=== PATIENT | female | born 1990 | race Caucasian/White ===

== ENCOUNTER 2016-11-02 14:29 | Emergency (ER) | payer OTHER ==
[2016-11-02 15:33] LABS: RED BLOOD COUNT 5.15 M/UL (4.00-5.10); WHITE BLOOD COUNT 8.3 K/UL (4.5-11.0)
[2016-11-02 15:52] LABS: BUN/CREATININE RATIO 17 (0-10)
== END 2016-11-02 19:45 | disposition home or self-care (01) ==
LOC: ER1 14:29
PROVIDERS: Emergency Medicine
DX: N83.202 Unspecified ovarian cyst, left side (principal); Z90.49 Acquired absence of other specified parts of digestive tract
CPT/HCPCS: 36415; 80053; 81001; 82272; 83605; 83690; 84703; 85025; 96361; 96374; 96375; 96376; 99284; J2270; J2405; J7030; J7050; Q9962

== ENCOUNTER → 2020-11-03 | Outpatient (CLI) | payer OTHER ==
[~2020-11-03] MED LIST: 24HR ALLERGY REL5 MG PO; BENADRYL 25MG C25 MG PO; COLACE100 MG PO; CYCLOBENZAPRINE10 MG PO; DICLOFENAC SODI50 MG PO; DICYCLOMINE HCL10 MG PO; EPINEPHRIN0.3 MG/0.3 INJ; FERROUS SULFAT325 MG PO; FLAGYL500 MG PO; HYDROCODON-ACE1 EAC4 PO; IBU800 MG PO; IBUPROFEN600 MG PO; IBUPROFEN800 MG PO; KEFLEX CAP 500500 MG PO; KEFLEX500 MG PO; KETOROLAC TROME10 MG PO; LAMISIL AT 15 G15 GM TOP; LEVOFLOXACIN250 MG PO; LEVSIN-SL0.125 MG PO; LIPITOR TAB 1010 MG PO; NAPROSYN500 MG PO; NAPROXEN 250 M250 MG PO; NEURONTIN300 MG PO; NITROGLYCERIN0.4 MG SL; NITROSTAT0.4 MG SL; NORCO 5-325 TA1 EACH PO; NORCO 7.5-3251 EACH PO; OXYCODONE HCL10 MG PO; PHENERGAN 12.12.5 M1 PO; PHENERGAN 25 MG25 M1 PO; POTASSIUM GLUCO99 MG PO; POTASSIUM PO; PREDNISONE 50 M50 MG PO; PROPRANOLOL HCL60 MG PO; PROTONIX 40 MG40 M1 PO; PROTONIX40 MG PO; SPRINTEC 28 DA1 EACH PO; TYLENOL 325MG325 MG PO; TYLENOL 500 MG500 MG PO; VENTOLIN HFA 66.7 GM INH; VITAMIN C 500500 MG PO; VITAMIN D PO; VITAMIN D250000 UNIT PO; VOLTAREN GEL TD; ZITHROMAX250 MG PO; ZOFRAN4 MG PO
[2020-11-03 09:45] LABS: HEMOGLOBIN 14.8 gm/dl (12.3-15.3); WHITE BLOOD COUNT 7.1 K/UL (4.5-11.0)
[2020-11-03 10:14] LABS: BUN/CREATININE RATIO 14 (0-10)
== END ==
LOC: LAB 09:11
PROVIDERS: Internal Medicine Cardiovascular Disease
DX: E78.5 Hyperlipidemia, unspecified (principal); D50.9 Iron deficiency anemia, unspecified; R00.2 Palpitations
CPT/HCPCS: 36415; 80053; 80061; 83735; 84439; 84443; 85025

== ENCOUNTER 2021-04-03 15:03 | Emergency (ER) | payer MEDICAID ==
[2021-04-03 16:56] LABS: BUN/CREATININE RATIO 8 (0-10); HEMOGLOBIN 15.9 gm/dl (12.3-15.3); RED BLOOD COUNT 5.26 M/UL (4.00-5.10); WHITE BLOOD COUNT 7.3 K/UL (4.5-11.0)
== END 2021-04-03 17:52 | disposition home or self-care (01) ==
LOC: ER1 15:03
PROVIDERS: Nurse Practitioner
DX: S80.11XA Contusion of right lower leg, initial encounter (principal); F17.210 Nicotine dependence, cigarettes, uncomplicated; Z86.718 Personal history of other venous thrombosis and embolism; Z88.2 Allergy status to sulfonamides; Z91.040 Latex allergy status; Z88.8 Allergy status to other drugs, medicaments and biological substances; W22.8XXA Striking against or struck by other objects, initial encounter
CPT/HCPCS: 73552; 80053; 85025; 85610; 99283

== ENCOUNTER 2021-04-28 10:55 | Emergency (ER) | payer MEDICAID | END 2021-04-28 12:42 | disposition home or self-care (01) | LOC: ER1 10:55 | DX: J02.9 Acute pharyngitis, unspecified (principal); F17.210 Nicotine dependence, cigarettes, uncomplicated; J45.909 Unspecified asthma, uncomplicated; Z88.2 Allergy status to sulfonamides; Z20.822 Contact with and (suspected) exposure to COVID-19; Z91.040 Latex allergy status; Z91.018 Allergy to other foods; Z79.899 Other long term (current) drug therapy | CPT/HCPCS: 87081; 87880; 99283; U0003 ==

== ENCOUNTER 2021-11-13 08:44 | Emergency (ER) | payer OTHER ==
[2021-11-13] MEDS ORDERED: ZITHROMAX250 MG PO (12:48)
[2021-11-13] MEDS ORDERED: PREDNISONE20 MG PO (12:48)
== END 2021-11-13 12:55 | disposition home or self-care (01) ==
LOC: ER1 08:44
DX: J45.901 Unspecified asthma with (acute) exacerbation (principal); Z72.0 Tobacco use; Z88.2 Allergy status to sulfonamides; Z91.040 Latex allergy status; Z79.899 Other long term (current) drug therapy
CPT/HCPCS: 71046; 87081; 87880; 94640; 94664; 99285